=== PATIENT | male | born 1960 | race African-American/Black ===

== ENCOUNTER 2023-03-13 11:40 | Inpatient (IN) | payer MEDICAID ==
[~2023-03-13] VITALS: Ht 185.4 cm; Wt 87.0 kg
[2023-03-13 13:01] LABS: Basophils # (auto) 0 10 ^3/uL (0-0.2); Basophils % (auto) 0.9 % (0.0-2.0); Eosinophils # (auto) 0.1 10 ^3/uL (0-0.8); Eosinophils % (auto) 2.6 % (0.0-7.0); Hematocrit 38.4 % (41.0-53.0); Hemoglobin 12.1 g/dL (13.5-17.5); Lymphocytes # (auto) 0.8 10 ^3/uL (0.4-5.4); Lymphocytes % (auto) 17.2 % (10.0-50.0); Mean Corpuscular Hgb Conc. 31.5 g/dL (32.0-36.0); Monocytes # (auto) 0.3 10 ^3/uL (0-1.3); Neutrophils # (auto) 3.4 10 ^3/uL (1.6-8.6); Neutrophils % (auto) 72.3 % (37.0-80.0); Nucleated Red Blood Cells % 0.1 %; Red Blood Cells 4.17 10^6/uL (4.5-5.90); Red Cell Distribution Width 15.7 % (11.8-14.3); White Blood Cell 4.7 10^3/uL (4.4-10.8)
[2023-03-13 13:26] LABS: Alanine Aminotransferase 31 U/L (7-40); Alkaline Phosphatase 151 U/L (46-116); Anion Gap 6 (5-15); BUN/Creatinine Ratio 11.4 (10.0-20.0); Blood Urea Nitrogen 18 mg/dL (9-23); Calcium 8.7 mg/dL (8.7-10.4); Carbon Dioxide 24 mmol/L (20-30); Chloride 107 mmol/L (98-107); Glucose 270 mg/dL (74-106); Potassium 5.2 mmol/L (3.5-5.1); Sodium 137 mmol/L (136-145)
[2023-03-13 13:27] LABS: Albumin 4.2 g/dL (3.2-4.8); Aspartate Aminotransferase 34 U/L (13-40); Bilirubin, Total 0.4 mg/dL (0.2-1.0); Total Protein 7.2 g/dL (5.7-8.2)
[2023-03-13 13:30] LABS: Partial Thromboplastin Time 55.8 SEC (24.5-34.5); Prothrombin Time 45.4 sec (9.3-11.8)
[2023-03-13 13:52] LABS: INR 4.79 (0.9-1.15)
[2023-03-13] MEDS ORDERED: AMLO1TAB23 PO (14:57)
[2023-03-13] MEDS ORDERED: GLIP10TA9 PO (14:57)
[2023-03-13] MEDS ORDERED: TRAZ1TAB12 PO (14:57)
[2023-03-13] MEDS ORDERED: MORP1TAB12 PO (14:57)
[2023-03-13] MEDS ORDERED: ATOR40TA52 PO (14:57)
[2023-03-13] MEDS ORDERED: LISI10TA34 PO (14:57)
[2023-03-13] MEDS ORDERED: NALO1TAB4 PO (14:57)
[2023-03-13] MEDS ORDERED: METH-1181 PO (14:57)
[2023-03-13] MEDS ORDERED: DEXTROSE (50%) 50ML SYRG IV PRN (15:00)
[2023-03-13] MEDS ORDERED: MORPHINE SULFATE INJ 2 MG/ml SYRG IV PRN ×2 (15:00)
[2023-03-13] MEDS ORDERED: ACETAMINOPHEN 325 MG TAB PO PRN (15:00)
[2023-03-13] MEDS ORDERED: NITROGLYCERIN 0.4 MG SL TAB SL PRN (15:00)
[2023-03-13] MEDS ORDERED: ONDANSETRON HCL 4 MG/2 ML VIAL IV PRN (15:00)
[2023-03-13 15:27] LABS: Urine Bacteria FEW /hpf (None Seen); Urine Blood Negative /uL (Negative); Urine Clarity Clear (Clear); Urine Color Yellow (Yellow); Urine Protein, UAD TRACE (Negative); Urine Specific Gravity 1.018 (1.001-1.035); Urine Urobilinogen Normal (Negative); Urine WBC 1 /hpf (0 - 3)
[2023-03-13] MEDS ORDERED: SODIUM CHLORIDE 0.9% 1,000 ML IV ONE (15:30)
[2023-03-13] MEDS ORDERED: hydrALAZINE HCL 20 MG/ML VL IV PRN (15:45)
[2023-03-13] MEDS: ACCU-CHEK COMFORT CURVE STRIP VI SCH ×2 (19:04→23:46)
[2023-03-13] MEDS: InsuLIN REG 1unit/0.01ml Soln (100units/ml) SC SCH ×2 (19:04→23:46)
[2023-03-13 19:09] VITALS: PULSE 85; RESP 14; O2SAT 95
[2023-03-13 19:30] VITALS: PULSE 86; RESP 16; O2SAT 98
[2023-03-13] MEDS ORDERED: FUROSEMIDE 20 MG/2 ML VIAL IV ONE (22:00)
[2023-03-13] MEDS ORDERED: ENOXAPARIN SOD 100 MG/1 ML SYRINGE SC SCH (22:00)
[2023-03-13] MEDS: traMADol HCL 50 MG TAB PO SCH (23:45)
[2023-03-13] MEDS: ATORVASTATIN 20 MG TAB PO SCH (23:46)
[2023-03-14] VITALS (7 sets, daily range): BP systolic 135–159; BP diastolic 82–100; PULSE 86–102; RESP 18–20; TEMP 97.7–98.3; O2SAT 94–98
[2023-03-14] MEDS: METHOCARBAMOL 500 MG TAB PO SCH ×4 (00:12→20:45)
[2023-03-14] MEDS ORDERED: PERCOT PO (00:13)
[2023-03-14 04:34] LABS: Basophils # (auto) 0.1 10 ^3/uL (0-0.2); Basophils % (auto) 1.2 % (0.0-2.0); Eosinophils # (auto) 0.1 10 ^3/uL (0-0.8); Eosinophils % (auto) 2.9 % (0.0-7.0); Hematocrit 36.6 % (41.0-53.0); Hemoglobin 11.8 g/dL (13.5-17.5); Lymphocytes # (auto) 0.9 10 ^3/uL (0.4-5.4); Lymphocytes % (auto) 18.8 % (10.0-50.0); Mean Corpuscular Hemoglobin 29.2 pg (28.0-32.0); Mean Corpuscular Hgb Conc. 32.1 g/dL (32.0-36.0); Mean Corpuscular Volume 90.8 fL (80.0-100.0); Monocytes # (auto) 0.5 10 ^3/uL (0-1.3); Monocytes % (auto) 10.6 % (0.0-12.0); Neutrophils % (auto) 66.5 % (37.0-80.0); Nucleated Red Blood Cells % 0.1 %; Red Blood Cells 4.03 10^6/uL (4.5-5.90); Red Cell Distribution Width 15.2 % (11.8-14.3); White Blood Cell 4.6 10^3/uL (4.4-10.8)
[2023-03-14 04:55] LABS: Alanine Aminotransferase 30 U/L (7-40); Albumin 4.1 g/dL (3.2-4.8); Alkaline Phosphatase 140 U/L (46-116); Anion Gap 7 (5-15); Aspartate Aminotransferase 26 U/L (13-40); BUN/Creatinine Ratio 10.5 (10.0-20.0); Blood Urea Nitrogen 14 mg/dL (9-23); Calcium 8.8 mg/dL (8.7-10.4); Carbon Dioxide 24 mmol/L (20-30); Chloride 107 mmol/L (98-107); Glucose 235 mg/dL (74-106); Potassium 4.3 mmol/L (3.5-5.1); Sodium 138 mmol/L (136-145)
[2023-03-14 04:56] LABS: Bilirubin, Total 0.5 mg/dL (0.2-1.0)
[2023-03-14 05:07] LABS: INR 3.9 (0.9-1.15); Partial Thromboplastin Time 54.8 SEC (24.5-34.5); Prothrombin Time 37.5 sec (9.3-11.8)
[2023-03-14] MEDS: OXYCODONE W/ ACETAMINOPHEN 5/325MG TABLET PO PRN (05:12)
[2023-03-14] MEDS: DOCUSATE SOD 100 MG CAP PO PRN ×2 (05:14→17:26)
[2023-03-14] MEDS: ACCU-CHEK COMFORT CURVE STRIP VI SCH ×4 (06:20→22:55)
[2023-03-14] MEDS: InsuLIN REG 1unit/0.01ml Soln (100units/ml) SC SCH ×4 (06:25→23:00)
[2023-03-14] MEDS: LISINOPRIL 10 MG TAB PO SCH (10:43)
[2023-03-14] MEDS: amLODIPine BESYLATE 5 MG TAB PO SCH (10:44)
[2023-03-14] MEDS: PANTOPRAZOLE 40 MG TAB PO SCH (10:44)
[2023-03-14] MEDS ORDERED: HEPARIN SODIUM (PORCINE) 5000 UNITS/ML 1ML VIAL IV ONE (15:15)
[2023-03-14] MEDS ORDERED: HEPARIN DRIP/D5W 100UNITS/ML 250 ML IV SCH (16:15)
[2023-03-14 16:35] LABS: Basophils # (auto) 0.1 10 ^3/uL (0-0.2); Basophils % (auto) 1.1 % (0.0-2.0); Eosinophils # (auto) 0 10 ^3/uL (0-0.8); Eosinophils % (auto) 0.7 % (0.0-7.0); Hematocrit 41.4 % (41.0-53.0); Hemoglobin 12.8 g/dL (13.5-17.5); Lymphocytes # (auto) 0.7 10 ^3/uL (0.4-5.4); Mean Corpuscular Hemoglobin 29.1 pg (28.0-32.0); Monocytes # (auto) 0.5 10 ^3/uL (0-1.3); Monocytes % (auto) 11.2 % (0.0-12.0); Neutrophils # (auto) 3.3 10 ^3/uL (1.6-8.6); Nucleated Red Blood Cells % 0.1 %; Red Cell Distribution Width 15.4 % (11.8-14.3); White Blood Cell 4.6 10^3/uL (4.4-10.8)
[2023-03-14 16:53] LABS: INR 2.95 (0.9-1.15); Partial Thromboplastin Time 51.8 SEC (24.5-34.5); Prothrombin Time 28.9 sec (9.3-11.8)
[2023-03-14] MEDS ORDERED: FLEET ENEMA(ADULT) 135 ML PR ONE ×2 (20:30→21:00)
[2023-03-14] MEDS: ATORVASTATIN 20 MG TAB PO SCH (20:46)
[2023-03-14] MEDS: traMADol HCL 50 MG TAB PO SCH (20:46)
[2023-03-15] VITALS (8 sets, daily range): BP systolic 117–144; BP diastolic 67–94; PULSE 78–103; RESP 14–20; TEMP 97.6–98.8; O2SAT 93–98
[2023-03-15] MEDS ORDERED: traZODone HCL 50 MG TAB PO ONE (00:45)
[2023-03-15 01:19] LABS: INR 2.48 (0.9-1.15); Partial Thromboplastin Time 45.7 SEC (24.5-34.5); Prothrombin Time 24.5 sec (9.3-11.8)
[2023-03-15] MEDS: METHOCARBAMOL 500 MG TAB PO SCH ×3 (06:59→22:15)
[2023-03-15] MEDS: OXYCODONE W/ ACETAMINOPHEN 5/325MG TABLET PO PRN ×2 (07:06→14:13)
[2023-03-15] MEDS: InsuLIN REG 1unit/0.01ml Soln (100units/ml) SC SCH ×4 (07:08→22:19)
[2023-03-15] MEDS: ACCU-CHEK COMFORT CURVE STRIP VI SCH ×4 (07:14→22:20)
[2023-03-15] MEDS: LISINOPRIL 10 MG TAB PO SCH (09:24)
[2023-03-15] MEDS: PANTOPRAZOLE 40 MG TAB PO SCH (09:25)
[2023-03-15] MEDS: amLODIPine BESYLATE 5 MG TAB PO SCH (09:25)
[2023-03-15 09:55] LABS: Prothrombin Time 22.9 sec (9.3-11.8)
[2023-03-15 09:59] LABS: Partial Thromboplastin Time > 139.0 SEC (24.5-34.5)
[2023-03-15] MEDS: HEPARIN DRIP/D5W 100UNITS/ML 250 ML IV SCH (11:13)
[2023-03-15] MEDS: INSULIN LANTUS (GLARGINE) 1 /0.01ml (100units/ml) SC SCH (11:53)
[2023-03-15] MEDS ORDERED: OXYC325T14 PO (14:23)
[2023-03-15] MEDS ORDERED: INSU1INJ19 SC (14:25)
[2023-03-15] MEDS ORDERED: DOCU-94 PO (14:26)
[2023-03-15] MEDS ORDERED: LORA-1121 PO (14:29)
[2023-03-15 19:43] LABS: INR 2.09 (0.9-1.15); Prothrombin Time 20.9 sec (9.3-11.8)
[2023-03-15 19:47] LABS: Partial Thromboplastin Time > 139.0 SEC (24.5-34.5)
[2023-03-15] MEDS: ATORVASTATIN 20 MG TAB PO SCH (22:15)
[2023-03-15] MEDS: traMADol HCL 50 MG TAB PO SCH (22:16)
[2023-03-15] MEDS: traZODone HCL 50 MG TAB PO SCH (22:16)
[2023-03-16] VITALS (8 sets, daily range): BP systolic 114–144; BP diastolic 68–87; PULSE 73–95; RESP 18–20; TEMP 97.3–98; O2SAT 97–99
[2023-03-16] MEDS: HEPARIN DRIP/D5W 100UNITS/ML 250 ML IV SCH (04:56)
[2023-03-16 05:02] LABS: INR 1.72 (0.9-1.15); Prothrombin Time 17.4 sec (9.3-11.8)
[2023-03-16 05:04] LABS: Partial Thromboplastin Time > 139.0 SEC (24.5-34.5)
[2023-03-16] MEDS ORDERED: HEPARIN DRIP/D5W 100UNITS/ML 250 ML IV SCH (06:00)
[2023-03-16] MEDS: METHOCARBAMOL 500 MG TAB PO SCH ×3 (06:22→22:03)
[2023-03-16] MEDS: InsuLIN REG 1unit/0.01ml Soln (100units/ml) SC SCH ×3 (06:25→17:49)
[2023-03-16] MEDS: ACCU-CHEK COMFORT CURVE STRIP VI SCH ×4 (06:26→22:03)
[2023-03-16] MEDS: LISINOPRIL 10 MG TAB PO SCH (09:19)
[2023-03-16] MEDS: PANTOPRAZOLE 40 MG TAB PO SCH (09:20)
[2023-03-16] MEDS: amLODIPine BESYLATE 5 MG TAB PO SCH (09:20)
[2023-03-16] MEDS: DOCUSATE SOD 100 MG CAP PO PRN ×2 (11:22→22:01)
[2023-03-16] MEDS: INSULIN LANTUS (GLARGINE) 1 /0.01ml (100units/ml) SC SCH (11:57)
[2023-03-16 12:53] LABS: INR 1.52 (0.9-1.15); Partial Thromboplastin Time 60.9 SEC (24.5-34.5); Prothrombin Time 15.5 sec (9.3-11.8)
[2023-03-16 13:17] LABS: Basophils # (auto) 0.1 10 ^3/uL (0-0.2); Basophils % (auto) 1.3 % (0.0-2.0); Eosinophils # (auto) 0.1 10 ^3/uL (0-0.8); Eosinophils % (auto) 1.2 % (0.0-7.0); Hematocrit 35.9 % (41.0-53.0); Hemoglobin 11.7 g/dL (13.5-17.5); Lymphocytes # (auto) 0.8 10 ^3/uL (0.4-5.4); Lymphocytes % (auto) 15.6 % (10.0-50.0); Mean Corpuscular Hemoglobin 29.2 pg (28.0-32.0); Mean Corpuscular Hgb Conc. 32.5 g/dL (32.0-36.0); Mean Corpuscular Volume 89.9 fL (80.0-100.0); Monocytes # (auto) 0.4 10 ^3/uL (0-1.3); Neutrophils # (auto) 3.6 10 ^3/uL (1.6-8.6); Neutrophils % (auto) 73.9 % (37.0-80.0); Nucleated Red Blood Cells % 0.1 %; Red Blood Cells 3.99 10^6/uL (4.5-5.90); Red Cell Distribution Width 14.9 % (11.8-14.3); White Blood Cell 4.9 10^3/uL (4.4-10.8)
[2023-03-16] MEDS: OXYCODONE W/ ACETAMINOPHEN 5/325MG TABLET PO PRN (14:09)
[2023-03-16 19:08] LABS: INR 1.52 (0.9-1.15); Prothrombin Time 15.5 sec (9.3-11.8)
[2023-03-16 19:11] LABS: Partial Thromboplastin Time 71.2 SEC (24.5-34.5)
[2023-03-16] MEDS: traZODone HCL 50 MG TAB PO SCH (22:00)
[2023-03-16] MEDS: traMADol HCL 50 MG TAB PO SCH (22:01)
[2023-03-16] MEDS: ATORVASTATIN 20 MG TAB PO SCH (22:02)
[2023-03-17] VITALS (11 sets, daily range): BP systolic 116–152; BP diastolic 62–93; PULSE 75–99; RESP 10–22; TEMP 97.5–98.9; O2SAT 98–99
[2023-03-17] MEDS: InsuLIN REG 1unit/0.01ml Soln (100units/ml) SC SCH ×5 (01:07→22:11)
[2023-03-17 01:16] LABS: INR 1.29 (0.9-1.15); Prothrombin Time 13.3 sec (9.3-11.8)
[2023-03-17 01:23] LABS: Partial Thromboplastin Time 124.1 SEC (24.5-34.5)
[2023-03-17] MEDS ORDERED: HEPARIN DRIP/D5W 100UNITS/ML 250 ML IV SCH ×2 (02:40→14:45)
[2023-03-17] MEDS: METHOCARBAMOL 500 MG TAB PO SCH ×3 (06:00→21:38)
[2023-03-17] MEDS: ACCU-CHEK COMFORT CURVE STRIP VI SCH ×4 (06:49→21:40)
[2023-03-17 07:07] LABS: Basophils # (auto) 0 10 ^3/uL (0-0.2); Basophils % (auto) 1.1 % (0.0-2.0); Eosinophils # (auto) 0.1 10 ^3/uL (0-0.8); Eosinophils % (auto) 1.8 % (0.0-7.0); Hematocrit 36.7 % (41.0-53.0); Hemoglobin 11.8 g/dL (13.5-17.5); Lymphocytes # (auto) 1.2 10 ^3/uL (0.4-5.4); Lymphocytes % (auto) 31.7 % (10.0-50.0); Mean Corpuscular Hemoglobin 29.2 pg (28.0-32.0); Mean Corpuscular Hgb Conc. 32.2 g/dL (32.0-36.0); Mean Corpuscular Volume 90.6 fL (80.0-100.0); Monocytes # (auto) 0.5 10 ^3/uL (0-1.3); Monocytes % (auto) 12.9 % (0.0-12.0); Neutrophils # (auto) 1.9 10 ^3/uL (1.6-8.6); Neutrophils % (auto) 52.5 % (37.0-80.0); Nucleated Red Blood Cells % 0.2 %; Red Blood Cells 4.05 10^6/uL (4.5-5.90); Red Cell Distribution Width 14.8 % (11.8-14.3); White Blood Cell 3.7 10^3/uL (4.4-10.8)
[2023-03-17 07:47] LABS: Alanine Aminotransferase 27 U/L (7-40); Albumin 4.1 g/dL (3.2-4.8); Alkaline Phosphatase 113 U/L (46-116); Anion Gap 7 (5-15); Aspartate Aminotransferase 25 U/L (13-40); BUN/Creatinine Ratio 12.7 (10.0-20.0); Blood Urea Nitrogen 17 mg/dL (9-23); Calcium 9.3 mg/dL (8.5-10.1); Carbon Dioxide 28 mmol/L (20-30); Chloride 106 mmol/L (98-107); Potassium 4.1 mmol/L (3.5-5.1); Sodium 141 mmol/L (136-145)
[2023-03-17 07:48] LABS: Bilirubin, Total 0.5 mg/dL (0.2-1.0)
[2023-03-17 07:51] LABS: Glucose 111 mg/dL (74-106)
[2023-03-17 09:12] LABS: INR 1.22 (0.9-1.15); Partial Thromboplastin Time 30.8 SEC (24.5-34.5); Prothrombin Time 12.6 sec (9.3-11.8)
[2023-03-17] MEDS ORDERED: LIDOCAINE 2%HCL (LOCAL ANESTH.) INJ 20ML MDV ONE ×2 (09:21→11:02)
[2023-03-17] MEDS ORDERED: IODIXANOL 320MG/ML 100ML BTL IV ONE ×3 (09:21→11:30)
[2023-03-17] MEDS ORDERED: MIDAZOLAM HCL 2MG/2ML 2ml VIAL (1mg/ml) ONE ×2 (09:24→10:45)
[2023-03-17] MEDS ORDERED: fentaNYL CITRATE 100 MCG/2 ML VL ONE ×2 (09:24→10:45)
[2023-03-17] MEDS ORDERED: HEPARIN SODIUM (PORCINE) 5000 UNITS/ML 1ML VIAL ONE (09:53)
[2023-03-17] MEDS: INSULIN LANTUS (GLARGINE) 1 /0.01ml (100units/ml) SC SCH (10:00)
[2023-03-17] MEDS: amLODIPine BESYLATE 5 MG TAB PO SCH (10:00)
[2023-03-17] MEDS: LISINOPRIL 10 MG TAB PO SCH (10:00)
[2023-03-17] MEDS: PANTOPRAZOLE 40 MG TAB PO SCH (10:00)
[2023-03-17] MEDS: OXYCODONE W/ ACETAMINOPHEN 5/325MG TABLET PO PRN ×2 (16:02→23:41)
[2023-03-17] MEDS: traMADol HCL 50 MG TAB PO SCH (21:37)
[2023-03-17] MEDS: traZODone HCL 50 MG TAB PO SCH (21:39)
[2023-03-17] MEDS: ATORVASTATIN 20 MG TAB PO SCH (21:40)
[2023-03-17 22:32] LABS: INR 1.17 (0.9-1.15); Partial Thromboplastin Time 50.2 SEC (24.5-34.5); Prothrombin Time 12.2 sec (9.3-11.8)
[2023-03-17] MEDS: DOCUSATE SOD 100 MG CAP PO PRN (23:37)
[2023-03-18 05:00] VITALS: BP 148/86; PULSE 85; RESP 16; TEMP 98.1; O2SAT 97
[2023-03-18] MEDS: ACCU-CHEK COMFORT CURVE STRIP VI SCH ×4 (06:11→21:44)
[2023-03-18] MEDS: METHOCARBAMOL 500 MG TAB PO SCH ×3 (06:12→21:43)
[2023-03-18] MEDS: InsuLIN REG 1unit/0.01ml Soln (100units/ml) SC SCH ×4 (06:15→21:50)
[2023-03-18 08:00] VITALS: BP 128/83; PULSE 85; PULSE 98; RESP 20; TEMP 98.3; O2SAT 99
[2023-03-18 09:00] VITALS: BP 128/83; PULSE 85; RESP 20; TEMP 98.3; O2SAT 99
[2023-03-18] MEDS: PANTOPRAZOLE 40 MG TAB PO SCH (09:23)
[2023-03-18] MEDS: amLODIPine BESYLATE 5 MG TAB PO SCH (09:23)
[2023-03-18] MEDS: LISINOPRIL 10 MG TAB PO SCH (09:23)
[2023-03-18] MEDS: OXYCODONE W/ ACETAMINOPHEN 5/325MG TABLET PO PRN (09:24)
[2023-03-18] MEDS: INSULIN LANTUS (GLARGINE) 1 /0.01ml (100units/ml) SC SCH (09:45)
[2023-03-18 10:09] LABS: Basophils # (auto) 0 10 ^3/uL (0-0.2); Eosinophils # (auto) 0 10 ^3/uL (0-0.8); Eosinophils % (auto) 1.1 % (0.0-7.0); Hemoglobin 11.8 g/dL (13.5-17.5); Lymphocytes # (auto) 0.5 10 ^3/uL (0.4-5.4); Mean Corpuscular Hgb Conc. 32.7 g/dL (32.0-36.0); Monocytes # (auto) 0.4 10 ^3/uL (0-1.3); Monocytes % (auto) 8.2 % (0.0-12.0); Neutrophils # (auto) 3.4 10 ^3/uL (1.6-8.6); Neutrophils % (auto) 77.7 % (37.0-80.0); Nucleated Red Blood Cells % 0.1 %; Red Blood Cells 3.92 10^6/uL (4.5-5.90); White Blood Cell 4.4 10^3/uL (4.4-10.8)
[2023-03-18 10:22] LABS: INR 1.12 (0.9-1.15); Partial Thromboplastin Time 47.7 SEC (24.5-34.5); Prothrombin Time 11.7 sec (9.3-11.8)
[2023-03-18] MEDS: HEPARIN DRIP/D5W 100UNITS/ML 250 ML IV SCH (12:52)
[2023-03-18] MEDS ORDERED: DEXTROSE (50%) 50ML SYRG IV PRN (14:00)
[2023-03-18] MEDS ORDERED: WARFARIN SODIUM 2.5 MG TAB PO ONE (17:00)
[2023-03-18 17:39] LABS: INR 1.12 (0.9-1.15); Prothrombin Time 11.7 sec (9.3-11.8)
[2023-03-18 20:00] VITALS: BP 168/91; PULSE 80; RESP 16; TEMP 97.8; O2SAT 98
[2023-03-18] MEDS: ATORVASTATIN 20 MG TAB PO SCH (21:43)
[2023-03-18] MEDS: traMADol HCL 50 MG TAB PO SCH (21:43)
[2023-03-18] MEDS: traZODone HCL 50 MG TAB PO SCH (21:44)
[2023-03-18 22:00] VITALS: BP 168/91; PULSE 80; RESP 16; TEMP 97.8; O2SAT 98
[2023-03-18 23:39] LABS: INR 1.1 (0.9-1.15); Partial Thromboplastin Time 66.9 SEC (24.5-34.5); Prothrombin Time 11.5 sec (9.3-11.8)
[2023-03-19 05:00] VITALS: BP 121/82; PULSE 108; RESP 16; TEMP 98.1; O2SAT 98
[2023-03-19] MEDS: METHOCARBAMOL 500 MG TAB PO SCH ×3 (06:03→21:20)
[2023-03-19] MEDS: HEPARIN DRIP/D5W 100UNITS/ML 250 ML IV SCH ×2 (06:05→16:28)
[2023-03-19] MEDS: ACCU-CHEK COMFORT CURVE STRIP VI SCH ×4 (06:06→21:23)
[2023-03-19] MEDS: InsuLIN REG 1unit/0.01ml Soln (100units/ml) SC SCH ×4 (06:21→21:30)
[2023-03-19 06:34] LABS: INR 1.11 (0.9-1.15); Prothrombin Time 11.6 sec (9.3-11.8)
[2023-03-19 08:00] VITALS: BP 118/79; PULSE 96; RESP 20; TEMP 97.9; O2SAT 97
[2023-03-19] MEDS ORDERED: HEPARIN SODIUM (PORCINE) 5000 UNITS/ML 1ML VIAL IV ONE ×2 (08:00→16:15)
[2023-03-19] MEDS: PANTOPRAZOLE 40 MG TAB PO SCH (10:29)
[2023-03-19] MEDS: amLODIPine BESYLATE 5 MG TAB PO SCH (10:29)
[2023-03-19] MEDS: LISINOPRIL 10 MG TAB PO SCH (10:29)
[2023-03-19] MEDS: INSULIN LANTUS (GLARGINE) 1 /0.01ml (100units/ml) SC SCH (10:33)
[2023-03-19] MEDS: DOCUSATE SOD 100 MG CAP PO PRN (12:52)
[2023-03-19] MEDS: OXYCODONE W/ ACETAMINOPHEN 5/325MG TABLET PO PRN (12:53)
[2023-03-19 15:48] LABS: INR 1.12 (0.9-1.15); Partial Thromboplastin Time 27.5 SEC (24.5-34.5); Prothrombin Time 11.7 sec (9.3-11.8)
[2023-03-19] MEDS ORDERED: WARFARIN SODIUM 2 MG TAB PO ONE (17:00)
[2023-03-19 17:12] VITALS: BP 100/62; PULSE 94; RESP 18; TEMP 98; O2SAT 95
[2023-03-19 20:00] VITALS: PULSE 54; RESP 16; O2SAT 96
[2023-03-19] MEDS: ATORVASTATIN 20 MG TAB PO SCH (21:20)
[2023-03-19] MEDS: traMADol HCL 50 MG TAB PO SCH (21:21)
[2023-03-19 22:00] VITALS: BP 145/79; PULSE 54; RESP 16; TEMP 98.4; O2SAT 96
[2023-03-19] MEDS: traZODone HCL 50 MG TAB PO SCH (23:05)
[2023-03-19 23:46] LABS: INR 1.11 (0.9-1.15); Prothrombin Time 11.6 sec (9.3-11.8)
[2023-03-20] MEDS ORDERED: HEPARIN SODIUM (PORCINE) 5000 UNITS/ML 1ML VIAL IV ONE (00:30)
[2023-03-20 05:00] VITALS: BP 133/77; PULSE 83; RESP 16; TEMP 98.2; O2SAT 95
[2023-03-20] MEDS: HEPARIN DRIP/D5W 100UNITS/ML 250 ML IV SCH ×3 (05:22→10:36)
[2023-03-20] MEDS: METHOCARBAMOL 500 MG TAB PO SCH ×2 (06:53→14:18)
[2023-03-20] MEDS: ACCU-CHEK COMFORT CURVE STRIP VI SCH ×3 (06:53→16:37)
[2023-03-20] MEDS: InsuLIN REG 1unit/0.01ml Soln (100units/ml) SC SCH ×3 (07:02→17:09)
[2023-03-20] MEDS: DOCUSATE SOD 100 MG CAP PO PRN (07:35)
[2023-03-20 08:44] LABS: Prothrombin Time 13.4 sec (9.3-11.8)
[2023-03-20 08:47] LABS: Partial Thromboplastin Time > 139.0 SEC (24.5-34.5)
[2023-03-20 09:00] VITALS: BP 136/83; PULSE 76; RESP 16; TEMP 98.3; O2SAT 100
[2023-03-20 09:01] LABS: Basophils # (auto) 0 10 ^3/uL (0-0.2); Basophils % (auto) 0.9 % (0.0-2.0); Eosinophils # (auto) 0.1 10 ^3/uL (0-0.8); Eosinophils % (auto) 2.7 % (0.0-7.0); Hematocrit 32.7 % (41.0-53.0); Hemoglobin 10.7 g/dL (13.5-17.5); Lymphocytes # (auto) 0.8 10 ^3/uL (0.4-5.4); Lymphocytes % (auto) 22.6 % (10.0-50.0); Mean Corpuscular Hgb Conc. 32.6 g/dL (32.0-36.0); Monocytes # (auto) 0.3 10 ^3/uL (0-1.3); Monocytes % (auto) 9.3 % (0.0-12.0); Neutrophils # (auto) 2.2 10 ^3/uL (1.6-8.6); Neutrophils % (auto) 64.5 % (37.0-80.0); Red Blood Cells 3.55 10^6/uL (4.5-5.90); Red Cell Distribution Width 15.3 % (11.8-14.3); White Blood Cell 3.4 10^3/uL (4.4-10.8)
[2023-03-20] MEDS: OXYCODONE W/ ACETAMINOPHEN 5/325MG TABLET PO PRN (10:21)
[2023-03-20] MEDS: PANTOPRAZOLE 40 MG TAB PO SCH (10:21)
[2023-03-20] MEDS: amLODIPine BESYLATE 5 MG TAB PO SCH (10:22)
[2023-03-20] MEDS: LISINOPRIL 10 MG TAB PO SCH (10:22)
[2023-03-20] MEDS: INSULIN LANTUS (GLARGINE) 1 /0.01ml (100units/ml) SC SCH (10:44)
[2023-03-20] MEDS ORDERED: OXYC325T14 PO (10:53)
[2023-03-20] MEDS ORDERED: ENO100SY SC (10:53)
[2023-03-20] MEDS ORDERED: WARF-112 PO (10:53)
[2023-03-20] MEDS ORDERED: INSU1INJ19 SC (10:53)
[2023-03-20 13:00] VITALS: BP 117/69; PULSE 91; RESP 20; TEMP 97.6; O2SAT 96
[2023-03-20] MEDS ORDERED: ENOXAPARIN SOD 100 MG/1 ML SYRINGE SC ONE (13:30)
[2023-03-20 16:30] VITALS: BP 136/83; TEMP 36.8
[2023-03-20] MEDS ORDERED: WARFARIN SODIUM 2.5 MG TAB PO ONE (17:45)
== END 2023-03-20 17:25 | disposition home or self-care (01) | DRG 197 ==
LOC: ER 11:40 → TELE 14:54 → TELE-EAST 23:48 → TELE-CENTR 03-14 14:54
PROVIDERS: ADMIT Nurse Practitioner Family; ATTEND Nurse Practitioner Acute Care
PROC: B51CYZA Fluoroscopy of Left Lower Extremity Veins using Other Contrast, Guidance (ICD-10-PCS; principal; 2023-03-17)
PROC: 06JY3ZZ Inspection of Lower Vein, Percutaneous Approach (ICD-10-PCS; 2023-03-17)
DX: I82.412 Acute embolism and thrombosis of left femoral vein (principal); I11.0 Hypertensive heart disease with heart failure; I50.9 Heart failure, unspecified; E11.9 Type 2 diabetes mellitus without complications; E78.5 Hyperlipidemia, unspecified; I25.10 Atherosclerotic heart disease of native coronary artery without angina pectoris; I71.40 Abdominal aortic aneurysm, without rupture, unspecified; K21.9 Gastro-esophageal reflux disease without esophagitis; Z98.61 Coronary angioplasty status; Z95.2 Presence of prosthetic heart valve; Z95.1 Presence of aortocoronary bypass graft; Z80.9 Family history of malignant neoplasm, unspecified; Z79.4 Long term (current) use of insulin
CPT/HCPCS: 36012; 36415; 37187; 71045; 76937; 80053; 81001; 81241; 82962; 83605; 84484; 85025; 85610; 85730; 86850; 86900; 86901; 87081; 93005; 93971; 99152; 99153; C1769; C1894; C2625; G0378; J1815; J2250; J2405; Q9967